=== PATIENT | female | born 1990 | race Caucasian/White ===

== ENCOUNTER 2018-06-23 22:39 | Emergency (ER) | payer SELFPAY ==
[2018-06-23] MEDS ORDERED: ACETAMINOPHEN 325 MG TABLET PO ONE (23:47)
--- NOTE | 2018-06-23 23:49 | ER Document Report ---
ED Seizure - General Chief Complaint: Seizure Stated Complaint: POSSIBLE SEIZURE Time Seen by Provider: 06/23/18 23:44 Mode of Arrival: Ambulatory Information source: Patient, Parent, Relative Notes: Patient is a 28-year-old female that was brought into emergency room by family stating that she had a witnessed seizure event tonight. According to the mother patient was at their house reading a [place] all of a sudden her arms flew up she screamed out loud and she fell backwards with her eyes fluttering and her body shaking. She was sitting on the couch when this occurred. There was no injury. The mother states that she did not lose urine or stool and she acted like she was very sleepy after the event. Mother states patient has seen a neurologist before when she was around age 11 and the last time she saw the neurologist was somewhere around 2010. She has a history of seizures that appear to be associated with her periods will also associated with any type of infection. Mother states that her seizures have gotten less and less over the years especially if they have put in an Implanon however the Implanon is due to come out very soon so it is at the end of that cycle. She states that she has not had a seizure in over a year and in the past week she has had 2. The neurologist she was seen was Dr. Head. 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 Last week she went to [facility] last week for that seizure event where she was placed on Vimpat and Topamax. It is important to note to the patient complains of major headaches. Headaches have been intensified over the past year. The headache is located in bilateral temples and throbbing. Patient states she has been diagnosed with migraines in the past but this is different presentation than the migraines. TRAVEL OUTSIDE OF THE [place] IN LAST 30 DAYS: No - HPI Patient complains to provider of: History of seizures Number of episodes: 2 Time of onset: 6 PM Duration: 30 seconds Quality of pain: No pain Severity: Moderate Pain Level: 3 Continued on arrival to ED: No Can details of seizure be obtained/verified: Yes Episode witnessed (by whom): Yes Current seizure medications: Vimpat, Other - Topamax Preceding symptoms/context: Other - Menses History of: Migraines Character of seizure: Partial loss/conscious, Generalized shaking, Staring. No : Incontinent stool, Incontinent bladder, Stopped breathing, Lost pulse Post-ictal symptoms: Confusion Injuries: None - Related Data Allergies/Adverse Reactions: No Known Allergies Allergy (Verified 04/06/16 05:25) Past Medical History - General Information source: Parent - Social History Smoking Status: Never Smoker Cigarette use (# per day): No Chew tobacco use (# tins/day): No Smoking Education Provided: No Frequency of alcohol use: None Drug Abuse: None Lives with: Family Family History: Reviewed & Not Pertinent, Other - Seizures Patient has suicidal ideation: No Patient has homicidal ideation: No - Past Medical History Cardiac Medical History: Reports: Hx Hypertension Neurological Medical History: Reports: Hx Migraine, Hx Seizures Renal/ Medical History: Denies: Hx Peritoneal Dialysis Past Surgical History: Reports: Hx Oral Surgery - wisdom teeth - Immunizations Hx Diphtheria, Pertussis, Tetanus Vaccination: No - unknown Review of Systems - Review of Systems Constitutional: No symptoms reported EENT: No symptoms reported Cardiovascular: No symptoms reported Respiratory: No symptoms reported Gastrointestinal: No symptoms reported Genitourinary: No symptoms reported Female Genitourinary: No symptoms reported, Other - . Ended today Musculoskeletal: No symptoms reported Skin: No symptoms reported Hematologic/Lymphatic: No symptoms reported Neurological/Psychological: No symptoms reported, Seizure -: Yes All other systems reviewed and negative Physical Exam - Vital signs Vitals: Resp 17 06/23/18 22:48 Interpretation: Normal - Notes Notes: Patient is well-nourished well-developed 28-year-old morbidly obese female. She is in no apparent distress on physical examination and is questionable mild MR. - General General appearance: Appears well, Alert In distress: None - HEENT Head: Normocephalic, Atraumatic Eyes: Normal Conjunctiva: Normal Ears: Normal, Ecchymosis External canal: Normal, Swollen Tympanic membrane: Normal, Bulging Sinus: Normal Nasal: Normal Mouth/Lips: Normal Mucous membranes: Normal, Moist Pharynx: Normal. No: Blood in hypopharynx, Erythema, Exudate, Post nasal drainage, Retropharyngeal abscess Neck: Normal, Supple. No: Anterior cervical chain, Posterior cervical chain, Carotid bruit, Kernig's, Lymphadenopathy, Meningismus - Respiratory Respiratory status: No respiratory distress Chest status: Nontender Breath sounds: Normal. No: Rales, Rhonchi, Stridor, Wheezing Chest palpation: Normal - Cardiovascular Rhythm: Regular Heart sounds: Normal auscultation Murmur: No - Abdominal Inspection: Normal Distension: No distension Bowel sounds: Normal Tenderness: Nontender Organomegaly: No organomegaly - Extremities General upper extremity: Normal inspection, Nontender, Normal strength, Normal temperature General lower extremity: Normal inspection, Nontender, Normal strength, Normal temperature - Neurological Neuro grossly intact: Yes Cognition: Normal Orientation: AAOx4 Hunter Coma Scale Eye Opening: Spontaneous [place] Coma Scale Verbal: Oriented [place] Coma Scale Motor: Obeys Commands [place] Coma Scale Total: 15 Speech: Normal Course - Re-evaluation Re-evalutation: 06/24/18 02:08 As stated patient has a history of seizures which makes her presentation or not really significant with the exception of the fact that she has increasing headaches that are different from her migraines. Also of note is that she does have a 16.9 white count no complaints of any upper respiratory problems no complaints of urinary problems or vaginal discharges. We are checking a chest x -ray just to make sure not missing something however I believe that the elevated white count is secondary to her seizure which is earlier in the evening. We are also waiting on a CT of her head to come back for any acute changes it may have recurred. 06/24/18 02:49 I have gone and again and reevaluate patient at I have discussed with mother that I am going to add patient on medication called No and she can follow- up with her primary doctor next week. Also been put in for a discharge planning patient from what mother states does not have any access to physicians secondary to no insurance so discharge planning may be able to help with possibility of specialist referral etc. - Vital Signs Vital signs: Temp Pulse Resp BP Pulse Ox 18 98 06/24/18 02:00 06/24/18 01:00 - Laboratory Result Diagrams: 06/24/18 00:15 06/24/18 00:15 Laboratory results interpreted by me: 06/24/18 06/24/18 06/24/18 00:15 00:15 00:15 WBC 16.4 H Absolute Neutrophils 12.2 H Glucose 112 H Urine Protein 100 H Urine Urobilinogen 2.0 H Discharge - Discharge Clinical Impression: Seizure Condition: Stable Instructions: Seizure, Known Epileptic (OM), Family Physicians / Practices, [facility] Additional Instructions: Continue current medications and I am adding on Keppra. Take it once a day. I have left a order for discharge planning so they can contact you tomorrow for watertight help you might need they might be able to provide. Should you have any concerns or problems return to ER for recheck. Prescriptions: Levetiracetam [Keppra 500 mg Tablet] 500 mg PO Q12 #30 tablet Forms: Elevated Blood Pressure, Return to Work
[2018-06-24 00:44] LABS: ABSOLUTE BASOPHILS # (AUTO) 0.1 10^3/uL (0.0-0.2); ABSOLUTE EOSINOPHILS # (AUTO) 0.3 10^3/uL (0.0-0.6); ABSOLUTE LYMPHOCYTES (AUTO) 2.9 10^3/uL (0.5-4.7); ABSOLUTE MONOCYTES (AUTO) 0.9 10^3/uL (0.1-1.4); ABSOLUTE NEUT (AUTO) 12.2 10^3/uL (1.7-8.2); BASOPHILS % (AUTO) 0.8 % (0-2); EOSINOPHILS % (AUTO) 1.8 % (0-6); HEMOGLOBIN 12.9 g/dL (12.0-15.5); LYMPHOCYTES % (AUTO) 17.6 % (13-45); MEAN CORPUSCULAR HEMOGLOBIN 28.7 pg (27.0-33.4); MEAN CORPUSCULAR HGB CONC 33.2 g/dL (32.0-36.0); MEAN CORPUSCULAR VOLUME 86 fl (80-97); MONOCYTES % (AUTO) 5.2 % (3-13); RED BLOOD COUNT 4.52 10^6/uL (3.72-5.28); RED CELL DISTRIBUTION WIDTH 13.6 % (11.5-14.0); SEGMENTED NEUTROPHILS % (AUTO) 74.6 % (42-78); TOTAL CELLS COUNTED % (AUTO) 100 %; WHITE BLOOD COUNT 16.4 10^3/uL (4.0-10.5)
[2018-06-24 00:53] LABS: APPEARANCE,URINE CLOUDY; BILIRUBIN,URINE NEGATIVE (NEGATIVE); COLOR,URINE YELLOW; GLUCOSE, URINE NEGATIVE (NEGATIVE); KETONES,URINE NEGATIVE (NEGATIVE); LEUKOCYTE ESTERASE,URINE NEGATIVE (NEGATIVE); NITRITE,URINE NEGATIVE (NEGATIVE); PROTEIN,URINE 100 mg/dL (NEGATIVE); URINE SPECIFIC GRAVITY 1.024
[2018-06-24 01:17] LABS: PLATELET COUNT 303 10^3/uL (150-450)
[2018-06-24 01:22] LABS: ALANINE AMINOTRANSFERASE 37 U/L (9-52); ALBUMIN 4.2 g/dL (3.5-5.0); ALKALINE PHOSPHATASE 60 U/L (38-126); ANION GAP 10 (5-19); ASPARTATE AMINO TRANSFERASE 34 U/L (14-36); BILIRUBIN,DIRECT 0.3 mg/dL (0.0-0.4); BILIRUBIN,TOTAL 0.5 mg/dL (0.2-1.3); BLOOD UREA NITROGEN 12 mg/dL (7-20); CALCIUM 9.7 mg/dL (8.4-10.2); CARBON DIOXIDE 24 mmol/L (22-30); CHLORIDE 105 mmol/L (98-107); GLUCOSE 112 mg/dL (75-110); POTASSIUM 4.5 mmol/L (3.6-5.0); SODIUM 139.1 mmol/L (137-145); TOTAL PROTEIN 8.2 g/dL (6.3-8.2)
[2018-06-24 02:05] LABS: URINE AMPHETAMINES SCREEN NEGATIVE; URINE BARBITURATES SCREEN NEGATIVE; URINE BENZODIAZEPINES SCREEN NEGATIVE; URINE COCAINE SCREEN NEGATIVE; URINE MARIJUANA (THC) SCREEN NEGATIVE; URINE METHADONE SCREEN NEGATIVE; URINE PHENCYCLIDINE SCREEN NEGATIVE
--- NOTE | 2018-06-24 02:19 | RADIOLOGY REPORT (SQ) ---
CLINICAL HISTORY: seizure with increasing headaches. COMPARISON: None. TECHNIQUE: CT HEAD WITHOUT IV CONTRAST on 06/23/2018 11:45 PM CDT This exam was performed according to our departmental dose-optimization program, which includes automated exposure control, adjustment of the mA and/or kV according to patient size and/or use of iterative reconstruction technique. FINDINGS: There is no acute hemorrhage, mass effect or midline shift. Barrios-white differentiation is preserved. There is no hydrocephalus. There is no significant volume loss for age. The calvarium is intact. Orbits and globes are unremarkable. The paranasal sinuses are clear. Mastoid air cells are clear. IMPRESSION: No acute intracranial findings.
--- NOTE | 2018-06-24 02:32 | RADIOLOGY REPORT (SQ) ---
CLINICAL HISTORY: cough COMPARISON: None. TECHNIQUE: XR CHEST 2 VIEWS 06/24/2018 1:27 AM CDT FINDINGS: Cardiac silhouette is normal in size. Lungs are clear without consolidation, atelectasis, mass or edema. There is no pleural effusion. There is no pneumothorax. There are no acute osseous findings. IMPRESSION: Clear lungs.
[2018-06-24] MEDS ORDERED: LEVETIRACETAM 500 MG TABLET PO ONE (02:48)
[2018-06-24 03:29] VITALS: BP 135/93
== END 2018-06-24 03:28 | disposition home or self-care (01) ==
LOC: ER 22:39
DX: R56.9 Unspecified convulsions (principal); W19.XXXA Unspecified fall, initial encounter; I10 Essential (primary) hypertension
CPT/HCPCS: 36415; 70450; 71046; 80053; 80307; 81001; 81025; 85025; 99285